=== PATIENT | male | born 1995 | race Caucasian/White ===

== ENCOUNTER 2018-02-23 15:53 | Emergency (ER) | payer OTHER, MEDICAID, SELFPAY ==
[2018-02-23 16:14] VITALS: BP 121/75; PULSE 90; RESP 18; O2SAT 100; BMI 22.1
[2018-02-23 17:22] VITALS: PULSE 90; RESP 18; O2SAT 98
--- NOTE | 2018-02-23 18:14 | ED_ITS ---
HPI - URI/Sore Throat <MIGUEL Bustillos - Last Filed: 02/23/18 18:17> General Chief Complaint: Upper Respiratory Symptoms Stated Complaint: thinks she has strep throat Time Seen by Provider: 02/23/18 16:58 Source: patient and family Mode of arrival: ambulatory Limitations: no limitations History of Present Illness HPI Narrative: The patient is a 22-year-old male nonsmoker student who presents with a chief complaint of a sore throat. States he has had low-grade temps as well as a sore throat for the past 2 days. He had strep back in November. He goes to [facility] and is around people continuously. He denies any nausea vomiting or diarrhea. Denies any ear pain. Denies any cough congestion. Denies any abdominal pain. Related Data Previous Rx's Medication Instructions Recorded amoxicillin 500 mg PO Q8H #21 cap 11/04/16 amoxicillin 875 mg PO BID #20 tab 02/23/18 Allergies Allergy/AdvReac Type Severity Reaction Status Date / Time No Known Allergies Allergy Uncoded 02/23/18 16:17 Review of Systems <MIGUEL Bustillos - Last Filed: 02/23/18 18:17> Review of Systems GENERAL: Denies chills, fatigue, malaise, fever, sweats. HEENT: See HPI RESPIRATORY: Denies dyspnea, cough, wheezing, hemoptysis, sputum. CARDIOVASCULAR: Denies chest pain, palpitations, orthopnea, edema, GASTROINTESTINAL: Denies nausea, vomiting, abdominal pain, diarrhea, constipation, melena. : Denies dysuria, frequency, incontinence, hematuria, urinary retention. MUSCULOSKELETAL: denies weakness, joint pain, or bony pain SKIN: Denies rash, skin lesions, or other NEUROLOGIC: Denies weakness, headache, numbness, change in speech, confusion, seizures, incoordination. PSYCHIATRIC: No concerning psychosocial issues. 12 point review of systems is negative except for those stated above Exam <MIGUEL Bustillos - Last Filed: 02/23/18 18:17> Narrative Exam Narrative: GENERAL: This is a well-nourished, well-developed patient, sitting in hallway HEAD: Atraumatic. Normocephalic. No temporal or scalp tenderness. EYES: Pupils equal round and reactive. Extraocular motions intact. No scleral icterus. No injection or drainage. ENT: Nose without bleeding, purulent drainage or septal hematoma. Bilateral tonsils have slight enlargement, erythema and exudate. Exudate also noted and throat. Uvula midline. Airway patent. NECK: Trachea midline. No JVD or lymphadenopathy. Supple, nontender, no meningeal signs. CARDIOVASCULAR: Regular rate and rhythm without murmurs, gallops, or rubs. RESPIRATORY: Clear to auscultation. Breath sounds equal bilaterally. No wheezes , rales, or rhonchi. GASTROINTESTINAL: Abdomen soft, non-tender, nondistended. No hepato-splenomegaly , or palpable masses. No guarding. EXTREMITIES: No clubbing, cyanosis, or edema. No joint tenderness, effusion, or edema noted. BACK: Nontender without deformity or crepitance. No flank tenderness. NEURO: AOx3. SKIN: No rash or erythema. Initial Vital Signs Initial Vital Signs: Vital Signs Pulse Rate 90 02/23/18 16:14 Respiratory Rate 18 02/23/18 16:14 Blood Pressure 121/75 02/23/18 16:14 Pulse Oximetry 100 02/23/18 16:14 <Stefan Hollingsworth DO - Last Filed: 02/23/18 19:32> Initial Vital Signs Initial Vital Signs: Vital Signs Pulse Rate 90 02/23/18 16:14 Respiratory Rate 18 02/23/18 16:14 Blood Pressure 121/75 02/23/18 16:14 Pulse Oximetry 100 02/23/18 16:14 Course <MIGUEL Bustillos - Last Filed: 02/23/18 18:17> Vital Signs - 8 hr 02/23/18 16:14 02/23/18 17:22 Pulse Rate 90 90 Respiratory Rate 18 18 Blood Pressure 121/75 Pulse Oximetry 100 98 <Stefan Hollingsworth DO - Last Filed: 02/23/18 19:32> Vital Signs - 8 hr 02/23/18 16:14 02/23/18 17:22 Pulse Rate 90 90 Respiratory Rate 18 18 Blood Pressure 121/75 Pulse Oximetry 100 98 MDM - URI/Sore Throat <MIGUEL Bustillos - Last Filed: 02/23/18 18:17> Lab Data Point of Care Testing Rapid Strep A Negative MDM Narrative Medical decision making narrative: Patient presents with a chief complaint of sore throat concerned about strep throat. His rapid strep was negative, but I am treating him for bacterial infection based on his exam including exudate and erythema. I discussed at length follow up with primary care provider for new or worsening symptoms. Discussed continued [id number] medications as needed for comfort and or fever. No questions or concerns upon discharge. <Stefan Hollingsworth DO - Last Filed: 02/23/18 19:32> Lab Data Point of Care Testing Rapid Strep A Negative Discharge Plan Departure Patient Disposition: Home Clinical Impression: Acute bacterial tonsillitis Discharge Date/Time: 02/23/18 17:22 Interventions: ED Discharge Assessment Last Done: 02/23/18 17:22 Instructions: DI for Pharyngitis/Tonsillopharyngitis -- Adult Activity Restrictions/Additional Instructions: Your rapid strep is negative, however I am treating you for a bacterial infection of your tonsils based on your exam. Please continue [id number] medications as needed for pain and fever. Please follow-up if worsening or no improvement. Prescriptions: New amoxicillin 875 mg tablet 875 mg PO BID Qty: 20 RF: 0 No Action amoxicillin 500 MG capsule 500 mg PO Q8H Qty: 21 RF: 0 <Stefan Hollingsworth DO - Last Filed: 02/23/18 19:32> Cosign ED Attending Maribellature Attestation: I was immediately available in the department for consultation. Documentation has been reviewed. I agree with assessment and plan.
== END 2018-02-23 17:22 | disposition home or self-care (01) ==
PROVIDERS: Emergency Provider Nurse Practitioner Family; Family Provider Family Medicine; PCP Family Medicine
DX: J03.80 Acute tonsillitis due to other specified organisms (principal); B96.89 Other specified bacterial agents as the cause of diseases classified elsewhere
CPT/HCPCS: 87880; 99282; 99283

== ENCOUNTER 2019-12-15 18:57 | Emergency (ER) | payer OTHER, MEDICAID, SELFPAY ==
[2019-12-15 19:10] VITALS: BP 138/84; PULSE 110; RESP 18; TEMP 37.8; O2SAT 100; BMI 20.7
--- NOTE | 2019-12-15 19:39 | DI.RAD.S_ITS ---
PROCEDURE: XR CHEST 1V INDICATIONS: Cough and fever eval for pneumonia TECHNIQUE: One view of the chest was acquired. COMPARISON: None. FINDINGS: Surgical changes and devices: None. Lungs and pleura: Minimal patchy right lower lobe opacity. Mediastinum: Mediastinal contours appear normal. Heart size is normal. Bones and chest wall: No suspicious bony lesions. Overlying soft tissues appear unremarkable. IMPRESSION: Minimal patchy right lower lobe opacity, suggestive of developing air space disease such as pneumonia. Dictated by: Maria Dolores Gonzales M.D. on 12/15/2019 at 20:00 Approved by: Maria Dolores Gonzales M.D. on 12/15/2019 at 20:01
[2019-12-15 19:41] LABS: COVID19 -Nasal RAPID Negative (Negative)
--- NOTE | 2019-12-15 19:46 | ED_ITS ---
HPI - General Adult General Chief complaint: Fever Stated complaint: states high fever, cough Time Seen by Provider: 12/15/19 19:38 Source: patient Mode of arrival: Ambulatory Limitations: no limitations History of Present Illness HPI narrative: Patient is an otherwise healthy 24-year-old male here for evaluation of approximately 24-48 hours of fevers and cough and body aches. Has been taking Tylenol for his symptoms. He did travel to [place] within the past 60 days. No other known sick contacts. Also has a right-sided sore throat. No problems breathing. Has taken some Tylenol for his symptoms however his last dose was earlier this morning. No rashes. Related Data Previous Rx's Medication Instructions Recorded amoxicillin 500 mg PO Q8H #21 cap 11/04/16 amoxicillin 875 mg PO BID #20 tab 02/23/18 azithromycin 250 mg PO DAILY 4 Days #4 tab 12/15/19 Allergies Allergy/AdvReac Type Severity Reaction Status Date / Time No Known Allergies Allergy Verified 12/15/19 20:29 Review of Systems Constitutional Constitutional: Reports fatigue and Reports fever(s) ENT Ears, Nose, Mouth, and Throat: Denies neck pain and Reports sore throat Cardiovascular Cardiovascular: Denies chest pain and Denies dyspnea Respiratory Respiratory: Reports cough and Denies dyspnea Gastrointestinal Gastrointestinal: Denies abdominal pain, Denies nausea and Denies vomiting Musculoskeletal Musculoskeletal: Denies neck pain Integumentary/Breasts Skin/Breast: Denies lesions and Denies rash Neurologic Neurologic: Denies behavioral changes Psychiatric Psychiatric: Denies behavioral changes Endocrine Endocrine: Reports fatigue Hematologic/Lymphatic Hematologic/Lymphatic: Denies easy bleeding and Denies easy bruising Allergic/Immunologic Allergic/Immunologic: Denies urticaria Patient History Medical History Strep pharyngitis (Inactive) Social History Smoking Status: Never smoker Smoking Status: Never smoker alcohol intake frequency: 0-2 drinks per day Substance Use Type: does not use Exam Initial Vital Signs Initial Vital Signs: Vital Signs Temperature 100.1 F H 12/15/19 19:10 Pulse Rate 110 H 12/15/19 19:10 Respiratory Rate 18 12/15/19 19:10 Blood Pressure 138/84 12/15/19 19:10 Pulse Oximetry 100 12/15/19 19:10 Const General: cooperative, comfortable and well developed Limitations: mental status not altered HENKY Head: normal to inspection and normocephalic Ears: hearing grossly normal bilaterally Mouth: oral mucosae normal Teeth and gingiva: dentition normal Throat: uvula midline and abnormal tonsil on the right erythema and exudates; not on the left Neck Lymphatic: lymphadenopathy Resp Effort & Inspection: normal respiratory effort Auscultation: clear to auscultation bilaterally Cardio Rate: tachycardic Rhythm: regular rhythm Skin Lesions: no lesions Rashes: no rashes Neuro General: patient alert and patient awake Cognition: normal cognition Speech: speech normal Extrem General: normal to inspection and capillary refill normal Psych Appearance: grossly normal and well kempt Course Orders Ordered: ED Orders 12/15/19 19:17 COVID19 -ED/INPAT/OR/L&D Stat 12/15/19 19:39 XR chest 1V Stat 12/15/19 20:20 Throat Culture Stat Discontinued Medications Acetaminophen (Tylenol) 650 mg PO NOW ONE Stop: 12/15/19 19:50 Last Admin: 12/15/19 19:56 Dose: 650 mg Documented by: JULIO C Azithromycin (Zithromax) 500 mg PO NOW ONE Stop: 12/15/19 20:28 Last Admin: 12/15/19 20:33 Dose: 500 mg Documented by: DELVIN Dexamethasone (Decadron) 10 mg PO NOW ONE Stop: 12/15/19 19:47 Last Admin: 12/15/19 19:56 Dose: 10 mg Documented by: JULIO C Vital Signs Vital signs: Vital Signs - 8 hr 12/15/19 19:10 Temperature 100.1 F H Pulse Rate 110 H Respiratory Rate 18 Blood Pressure 138/84 Pulse Oximetry 100 Medical Decision Making Lab Data Lab results reviewed: Yes I reviewed the patient's lab results. Labs: Lab Results 12/15/19 Range/Units 19:17 COVID-19 PCR Negative (Negative) Point of Care Testing Rapid Strep A Negative Point of care testing: Point of Care Testing Rapid Strep A Negative Imaging Data Chest x-ray: Radiologist's Impression: [address] [address] XRay Report Signed Patient: aJnn Almeida KMR#: [id number] : 1995Acct:[id number] Age/Sex: 24 / MDate of Service: 12/15/19 Loc: ED Accession Number: [id number] Procedure: XR chest 1V Ordering Provider: Solomon Culver D.O. PROCEDURE: XR CHEST 1V INDICATIONS: Cough and fever eval for pneumonia TECHNIQUE: One view of the chest was acquired. COMPARISON: None. FINDINGS: Surgical changes and devices: None. Lungs and pleura: Minimal patchy right lower lobe opacity. Mediastinum: Mediastinal contours appear normal. Heart size is normal. Bones and chest wall: No suspicious bony lesions. Overlying soft tissues appear unremarkable. IMPRESSION: Minimal patchy right lower lobe opacity, suggestive of developing air space disease such as pneumonia. Dictated by: Maria Dolores Gonzales M.D. on 12/15/2019 at 20:00 Approved by: Maria Dolores Gonzales M.D. on 12/15/2019 at 20:01 [facility] Narrative Medical decision making narrative: Not in any respiratory distress. He does have 1 sided tonsillar exudate in this does correspond with a sign that he is having symptoms on however his rapid strep was negative. Urine culture was taken was pending at the time of discharge. His physical exam is not consistent with peritonsillar retropharyngeal abscess. The chest x-ray that was obtained did show potential right-sided lower lobe pneumonia. This does correspond with his presenting symptoms to include fever coughing. Had a discussion with him regarding his symptoms. Will send home on azithromycin. He is given 1st dose here in the ER. He was informed that a throat culture was pending at the time of discharge however even if it did come back positive for strep throat he is being treated appropriately on the antibiotics. Patient not hypoxic. His covered is negative. I feel he does not need admitted to the hospital. He was given return precautions he expressed understanding and agreement Discharge Plan Departure Patient Disposition: Home Clinical Impression: Pneumonia Qualifiers: Pneumonia type: due to unspecified organism Laterality: right Lung location: lower lobe of lung Qualified Code(s): J18.9 - Pneumonia, unspecified organism Pharyngitis Qualifiers: Pharyngitis/tonsillitis etiology: unspecified etiology Qualified Code(s): J02.9 - Acute pharyngitis, unspecified Discharge Date/Time: 12/15/19 20:36 Instructions: DI for Pneumonia -- Adult Activity Restrictions/Additional Instructions: A throat culture was pending at the time of your discharge however the antibiotics that we are sending you home on should treat strep throat. You were given your 1st dose of the antibiotics here in the ER. The next dose will be tomorrow 12/16/19. Contact your primary provider for follow-up. Return to the emergency department for any new or worsening symptoms Prescriptions: New azithromycin 250 mg tablet 250 mg PO DAILY 4 Days Qty: 4 RF: 0 No Action amoxicillin 500 MG capsule 500 mg PO Q8H Qty: 21 RF: 0 amoxicillin 875 mg tablet 875 mg PO BID Qty: 20 RF: 0 Referrals: Douglas Soria MD [Primary Care Provider] -
[2019-12-15] MEDS: ACETAMINOPHEN 325 MG TABLET 650 MG PO (19:56)
[2019-12-15] MEDS: DEXAMETHASONE 10 MG/ML VIAL PO (19:56)
[2019-12-15] MEDS: AZITHROMYCIN 250 MG TABLET 500 MG PO (20:33)
== END 2019-12-15 20:36 | disposition home or self-care (01) ==
PROVIDERS: Emergency Provider Emergency Medicine; Family Provider Family Medicine; PCP Family Medicine
DX: J18.9 Pneumonia, unspecified organism (principal); J02.9 Acute pharyngitis, unspecified; R05 Cough
CPT/HCPCS: 71045; 87070; 87077; 87147; 87635; 87880; 99283; J1100

== ENCOUNTER 2020-02-27 07:22 | Emergency (ER) | payer OTHER, MEDICAID, SELFPAY ==
[2020-02-27 07:32] VITALS: BP 141/76; PULSE 96; RESP 16; TEMP 37.6; O2SAT 99; BMI 20.7
--- NOTE | 2020-02-27 07:38 | ED.FEVER ---
HPI - Fever General Chief Complaint: Upper Respiratory Symptoms Stated Complaint: fever,sore throat Time Seen by Provider: 02/27/20 07:28 Source: patient Mode of arrival: Ambulatory Limitations: no limitations History of Present Illness HPI Narrative: 24-year-old male nonsmoker, nondrinker presents with a chief complaint of subjective fever and sore throat with difficulty swallowing over the course of last night and today. He denies runny nose, sneezing or cough. He has had no nausea, vomiting or diarrhea. He is otherwise well and free of complaint and denies any exposure to known or suspected COVID MD complaint: fever Onset (ago): hour(s) Temperature Source: subjective Associated symptoms: chills and sore throat Relieving factors: nothing Exacerbating factors: nothing Treatments prior to arrival fever: none Related Data Previous Rx's Medication Instructions Recorded amoxicillin 500 mg PO Q8H #21 cap 11/04/16 amoxicillin 875 mg PO BID #20 tab 02/23/18 Allergies Allergy/AdvReac Type Severity Reaction Status Date / Time No Known Allergies Allergy Verified 02/27/20 07:35 Review of Systems Constitutional Constitutional: Denies chills, Denies fatigue, Reports fever(s), Denies frequent falls, Denies lethargy and Denies weakness Eyes Eyes: Denies change in vision, Denies eye discharge, Denies irritation and Denies loss of vision ENT Ears, Nose, Mouth, and Throat: Denies change in voice, Denies dizziness, Denies neck pain, Reports sore throat and Denies throat swelling Cardiovascular Cardiovascular: Denies chest pain, Denies irregular heart rhythm, Denies lightheadedness, Denies palpitations, Denies dyspnea, Denies dyspnea on exertion and Denies orthopnea Respiratory Respiratory: Denies cough, Denies dyspnea, Denies dyspnea on exertion and Denies wheezing Gastrointestinal Gastrointestinal: Denies abdominal pain, Denies change in bowel habits, Denies diarrhea, Denies nausea and Denies vomiting Musculoskeletal Musculoskeletal: Denies neck pain and Denies numbness Integumentary/Breasts Skin/Breast: Denies pruritus, Denies erythema, Denies rash and Denies wounds Neurologic Neurologic: Denies behavioral changes, Denies confusion, Denies dizziness, Denies frequent falls, Denies loss of vision, Denies numbness and Denies weakness Psychiatric Psychiatric: Denies anxiety, Denies behavioral changes, Denies confusion, Denies depression, Denies homicidal ideation and Denies suicidal ideation Endocrine Endocrine: Denies fatigue, Denies flushing and Denies palpitations Hematologic/Lymphatic Hematologic/Lymphatic: Denies easy bruising Allergic/Immunologic Allergic/Immunologic: Denies urticaria, Denies throat swelling and Denies wheezing Patient History Medical History (Updated 02/27/20 @ 09:25 by Stefan Hollingsworth DO) Strep pharyngitis Social History Smoking Status: Never smoker Smoking Status: Never smoker alcohol intake frequency: 0-2 drinks per day Substance Use Type: does not use Exam Narrative Exam Narrative: GEN: AOx3 and in mild distress EYES: Pupils are equal, round, and reactive to light and accommodation. Extraoccular muscles are intact bilaterally. There is no subconjunctival hemorrhage or exudate. ENT: Mild posterior pharyngeal drainage, no obvious tonsillar swelling, erythema or exudate. No soft palate petechiae. No tender lymphadenopathy. CHEST: Lungs are clear to auscultation bilaterally and free of wheezes, rales, or rhonchi. Heart rate is regular rhythm, there are no murmurs, clicks, rubs, or gallops. There is no chest wall tenderness. ABD: Abdomen is soft and nontender. There is no guarding or rebound. Bowel sounds are normal in all 4 quadrants. There is no mass or organomegaly. EXT: Full painless ROM of all extremities with no loss of sensation or strength. SKIN: Warm, pink, and dry. No erythema or rash Initial Vital Signs Initial Vital Signs: Vital Signs Temperature 99.6 F 02/27/20 07:32 Pulse Rate 96 H 02/27/20 07:32 Respiratory Rate 16 02/27/20 07:32 Blood Pressure 141/76 H 02/27/20 07:32 Pulse Oximetry 99 02/27/20 07:32 Course Orders Ordered: ED Orders 02/27/20 07:30 COVID19 Stat Throat Culture Stat Discontinued Medications Bupivacaine HCl (Bupivacaine 0.5% (Pf) Vial) 5 ml SUBCUT NOW ONE Stop: 02/27/20 07:48 Vital Signs Vital signs: Vital Signs - 8 hr 02/27/20 07:32 Temperature 99.6 F Pulse Rate 96 H Respiratory Rate 16 Blood Pressure 141/76 H Pulse Oximetry 99 MDM - Fever Lab Data Labs: Lab Results 02/27/20 Range/Units 07:30 COVID-19 PCR Negative (Negative) Point of Care Testing Rapid Strep A Negative [facility] Narrative Medical decision making narrative: Throat pain and subjective fever with negative rapid strep and negative COVID. No exudate, tonsillar swelling or erythema. Will await results of culture. Patient given return precautions, questions answered to his apparent satisfaction Discharge Plan Departure Patient Disposition: Home Clinical Impression: Pharyngitis Qualifiers: Pharyngitis/tonsillitis etiology: unspecified etiology Qualified Code(s): J02.9 - Acute pharyngitis, unspecified Instructions: Sore Throat Activity Restrictions/Additional Instructions: *You have been diagnosed with [sore throat. Both your strep test and COVID were negative. Culture is pending and if you need any specific treatment based on the results we will call you in a few days. No news is good news] *What to do: *Take medications as directed: Tylenol or Motrin for pain *Follow up with your primary care provider in 2-3 days, call for an appointment. Let them know you were seen in the Emergency Department and that we ask that you be seen in follow up *Return to ER if you should have any new, worsening or concerning symptoms Prescriptions: No Action amoxicillin 500 MG capsule 500 mg PO Q8H Qty: 21 RF: 0 amoxicillin 875 mg tablet 875 mg PO BID Qty: 20 RF: 0 Referrals: Douglas Soria MD [Primary Care Provider] -
[2020-02-27 08:50] LABS: COVID19 -Nasal RAPID Negative (Negative)
== END 2020-02-27 09:31 | disposition home or self-care (01) ==
PROVIDERS: Emergency Provider Emergency Medicine; Family Provider Family Medicine; PCP Family Medicine
DX: J02.9 Acute pharyngitis, unspecified (principal); R50.9 Fever, unspecified; Z20.828 Contact with and (suspected) exposure to other viral communicable diseases
CPT/HCPCS: 87070; 87635; 87880; 99281; 99282